=== PATIENT | male | born 1945 | race Caucasian/White ===

== ENCOUNTER 2017-01-21 01:25 | Inpatient (IN) | payer OTHER ==
[~2017-01-21] VITALS: Ht 188 cm; Wt 100.0 kg
[2017-01-21 04:29] LABS: BASOPHIL 0.1 % (0-2); EOSINOPHIL 1.4 % (0-7); HCT 40.8 % (42.0-52.0); HGB 14.2 g/dl (13.2-18.0); LYMPHOCYTE 7.4 % (15-48); MCH 32.9 pg (25.0-31.0); MCHC 34.8 g/dL (32.0-36.0); MCV 94.4 fL (78.0-100.0); MONOCYTE 4.8 % (0-12); MPV 10.7 fL (6.0-9.5); NEUTROPHIL 86.3 % (41-80); PLT 157 K/uL (150-400); RBC 4.32 M/uL (4.70-6.00); RDW 13.2 % (11.5-14.0); WBC 11.4 K/uL (4.0-10.5)
[2017-01-21 04:32] LABS: INR 1.16 (0.9-1.2); PROTHROMBIN TIME 13.9 SECONDS (11.4-13.2)
[2017-01-21 04:44] LABS: ALBUMIN 4.2 g/dL (3.4-4.8); BILIRUBIN - TOTAL 0.5 mg/dL (0.1-1.0); CREATININE 1.1 mg/dL (0.7-1.2); GLOBULIN (CALCULATION) 2.8 g/dL (2.2-4.2); POTASSIUM 4.3 mmol/L (3.5-5.1)
[2017-01-21 13:14] LABS: BILIRUBIN NEGATIVE (NEGATIVE); BLOOD TRACE-INTACT Ery/uL (NEGATIVE); CLARITY CLEAR (CLEAR); COLOR YELLOW (YELLOW); GLUCOSE (U) NORMAL (NORMAL); KETONE (U) NEGATIVE (NEGATIVE); LEUKOCYTES NEGATIVE Leu/uL (NEGATIVE); NITRITE NEGATIVE (NEGATIVE); PROTEIN NEGATIVE (NEGATIVE); SPECIFIC GRAVITY 1.015 (1.001-1.030); UROBILINOGEN 0.2 mg/dL (0.2-1.0); pH 5.5 (5.0-9.0)
[2017-01-22 06:04] LABS: HCT 33.3 % (42.0-52.0); HGB 11.1 g/dl (13.2-18.0); MCH 32.1 pg (25.0-31.0); MCHC 33.3 g/dL (32.0-36.0); MCV 96.2 fL (78.0-100.0); MPV 9.8 fL (6.0-9.5); RBC 3.46 M/uL (4.70-6.00); RDW 13.2 % (11.5-14.0); WBC 9.9 K/uL (4.0-10.5)
[2017-01-22 06:35] LABS: CREATININE 1.2 mg/dL (0.7-1.2); MAGNESIUM 1.68 mg/dL (1.40-2.10); POTASSIUM 4.4 mmol/L (3.5-5.1)
[2017-01-23 06:01] LABS: HCT 28.5 % (42.0-52.0); HGB 9.8 g/dl (13.2-18.0); MCH 32.7 pg (25.0-31.0); MCHC 34.4 g/dL (32.0-36.0); RDW 12.7 % (11.5-14.0); WBC 10.3 K/uL (4.0-10.5)
[2017-01-23 06:17] LABS: CREATININE 1.2 mg/dL (0.7-1.2); MAGNESIUM 1.89 mg/dL (1.40-2.10); PHOSPHORUS 1.9 mg/dL (2.7-4.5); POTASSIUM 4.5 mmol/L (3.5-5.1)
[2017-01-23 13:08] LABS: HCT 29.8 % (42.0-52.0); HGB 10.1 g/dl (13.2-18.0); MCH 32.5 pg (25.0-31.0); MCHC 33.9 g/dL (32.0-36.0); MCV 95.8 fL (78.0-100.0); MPV 9.6 fL (6.0-9.5); RBC 3.11 M/uL (4.70-6.00); RDW 12.8 % (11.5-14.0); WBC 13.5 K/uL (4.0-10.5)
[2017-01-24 01:48] LABS: BILIRUBIN NEGATIVE (NEGATIVE); BLOOD TRACE-INTACT Ery/uL (NEGATIVE); CLARITY CLEAR (CLEAR); COLOR YELLOW (YELLOW); GLUCOSE (U) TRACE mg/dL (NORMAL); KETONE (U) NEGATIVE (NEGATIVE); LEUKOCYTES NEGATIVE Leu/uL (NEGATIVE); NITRITE NEGATIVE (NEGATIVE); PROTEIN NEGATIVE (NEGATIVE); UROBILINOGEN 0.2 mg/dL (0.2-1.0); pH 5.5 (5.0-9.0)
[2017-01-24 02:01] LABS: BACTERIA TRACE; SQUAMOUS EPITHELIAL CELLS RARE
[2017-01-24 06:02] LABS: HCT 26.1 % (42.0-52.0); HGB 8.9 g/dl (13.2-18.0); MCH 32.7 pg (25.0-31.0); MCHC 34.1 g/dL (32.0-36.0); MPV 9.9 fL (6.0-9.5); RBC 2.72 M/uL (4.70-6.00); RDW 12.8 % (11.5-14.0); WBC 9.6 K/uL (4.0-10.5)
[2017-01-24 06:28] LABS: CREATININE 1.1 mg/dL (0.7-1.2); MAGNESIUM 2.04 mg/dL (1.40-2.10); PHOSPHORUS 2.3 mg/dL (2.7-4.5); POTASSIUM 4.4 mmol/L (3.5-5.1)
[2017-01-25 06:14] LABS: HCT 24.3 % (42.0-52.0); HGB 8.2 g/dl (13.2-18.0); MCH 32.3 pg (25.0-31.0); MCHC 33.7 g/dL (32.0-36.0); MCV 95.7 fL (78.0-100.0); MPV 9.9 fL (6.0-9.5); RBC 2.54 M/uL (4.70-6.00); RDW 12.6 % (11.5-14.0); WBC 7.2 K/uL (4.0-10.5)
[2017-01-25 06:37] LABS: MAGNESIUM 1.96 mg/dL (1.40-2.10); PHOSPHORUS 2.1 mg/dL (2.7-4.5); POTASSIUM 4.3 mmol/L (3.5-5.1)
[2017-01-26 12:01] LABS: CREATININE 0.9 mg/dL (0.7-1.2); MAGNESIUM 2.07 mg/dL (1.40-2.10); PHOSPHORUS 2.4 mg/dL (2.7-4.5); POTASSIUM 4.6 mmol/L (3.5-5.1)
[2017-01-26 12:09] LABS: HCT 24.9 % (42.0-52.0); HGB 8.4 g/dl (13.2-18.0); MCH 32.1 pg (25.0-31.0); MCHC 33.7 g/dL (32.0-36.0); PLT 164 K/uL (150-400); RBC 2.62 M/uL (4.70-6.00); WBC 5.4 K/uL (4.0-10.5)
[2017-01-27 05:29] LABS: HCT 23.9 % (42.0-52.0); HGB 8.1 g/dl (13.2-18.0); MCH 32.3 pg (25.0-31.0); MCHC 33.9 g/dL (32.0-36.0); MCV 95.2 fL (78.0-100.0); PLT 179 K/uL (150-400); RBC 2.51 M/uL (4.70-6.00); WBC 4.9 K/uL (4.0-10.5)
[2017-01-27 05:44] LABS: CREATININE 0.9 mg/dL (0.7-1.2); PHOSPHORUS 2.7 mg/dL (2.7-4.5); POTASSIUM 4.1 mmol/L (3.5-5.1)
== END 2017-01-29 14:28 | DRG 470 ==
LOC: FER 01:25 → FMS 02:58
PROVIDERS: Nurse Practitioner; Orthopaedic Surgery; ADMIT Internal Medicine
PROC: 0LNK0ZZ Release Left Hip Tendon, Open Approach (ICD-10-PCS; 2017-01-21)
PROC: 0SRS0JA Replacement of Left Hip Joint, Femoral Surface with Synthetic Substitute, Uncemented, Open Approach (ICD-10-PCS; principal; 2017-01-21 14:00)
DX: S72.012A Unspecified intracapsular fracture of left femur, initial encounter for closed fracture (principal); I69.354 Hemiplegia and hemiparesis following cerebral infarction affecting left non-dominant side; E11.9 Type 2 diabetes mellitus without complications; D62 Acute posthemorrhagic anemia; M62.462 Contracture of muscle, left lower leg; W01.0XXA Fall on same level from slipping, tripping and stumbling without subsequent striking against object, initial encounter; Y93.01 Activity, walking, marching and hiking; Y92.008 Other place in unspecified non-institutional (private) residence as the place of occurrence of the external cause; R53.1 Weakness; E78.5 Hyperlipidemia, unspecified; N18.2 Chronic kidney disease, stage 2 (mild); R50.2 Drug induced fever; Z87.891 Personal history of nicotine dependence
CPT/HCPCS: 36415; 71010; 71020; 72170; 73080; 73501; 73552; 76000; 80048; 80053; 80202; 81001; 81003; 82550; 83605; 83735; 84100; 84145; 84439; 84484; 85025; 85610; 85651; 86140; 86850; 86900; 86901; 87040; 87088; 88305; 88311; 90471; 90715; 93970; 93971; 94010; 94760; 94762; 97110; 97116; 97162; 97166; 97530; 97530-GP; 97535; C1776; J0131; J1885; J2270; J2405; J2704; J2795; J3010; J3370; J3475

== ENCOUNTER 2017-01-29 15:12 | Inpatient (IN) | payer OTHER ==
[~2017-01-29] VITALS: Ht 188 cm; Wt 91.9 kg
--- NOTE | 2017-01-30 16:29 | NUR ---
MET WITH PT. THIS DATE TO COMPLETE ASSESSMENT. PT. PLANS TO RETURN HOME WITH SPOUSE. HE WILL NEED A ROLLING WALKER. HE HAS A WALK IN SHOWER WITH SEAT. PT. IS UNDECIDED AT THIS TIME IS WANTS OUTPT. THERAPY OR HH.
--- NOTE | 2017-02-05 11:55 | NUR ---
MET WITH PT. TO DISCUSS DISCHARGE PLANS. [facility] IS TO DELIVER A ROLLING WALKER UPON DISCHARGE. PT. WILL D/C HOME WITH SPOUSE. HE IS STILL UNSURE OF HH OR OUTPT. HE WILL DISCUSS WITH SPOUSE. D/C NOTICE AND QUESTIONNAIRE GIVEN.
[2017-02-08] MEDS ORDERED: XARELTO10 MG PO (07:12)
[2017-02-08] MEDS ORDERED: CERTAGEN1 EACH PO (07:13)
[2017-02-08] MEDS ORDERED: LIPITOR40 MG PO (07:13)
[2017-02-08] MEDS ORDERED: FEOSOL325 MG PO (07:13)
[2017-02-08] MEDS ORDERED: SENOKOT-S TABL1 EACH PO (07:13)
[2017-02-08] MEDS ORDERED: ASPIRIN CHEWABL81 MG PO (07:14)
[2017-02-08] MEDS ORDERED: PERCOCET 5/3251 TAB PO (07:15)
== END 2017-02-08 15:45 | disposition home or self-care (01) | DRG 536 ==
LOC: FSNU 15:12
PROVIDERS: ADMIT Internal Medicine
DX: S72.012A Unspecified intracapsular fracture of left femur, initial encounter for closed fracture (principal); M62.462 Contracture of muscle, left lower leg; W01.0XXA Fall on same level from slipping, tripping and stumbling without subsequent striking against object, initial encounter; Y93.01 Activity, walking, marching and hiking; Y92.008 Other place in unspecified non-institutional (private) residence as the place of occurrence of the external cause; Z86.73 Personal history of transient ischemic attack (TIA), and cerebral infarction without residual deficits; R53.1 Weakness; Z79.01 Long term (current) use of anticoagulants; Z79.82 Long term (current) use of aspirin; Z47.1 Aftercare following joint replacement surgery; Z96.642 Presence of left artificial hip joint
CPT/HCPCS: 97110; 97116; 97162; 97166; 97530; 97530-GP; 97535